=== PATIENT | female | born 1970 | race Two or more races ===

== ENCOUNTER → 2016-09-05 | Outpatient (CLI) | payer BC, OTHER ==
--- NOTE | ~2016-09-05 | MY11 ---
[facility] A Service of [facility] RADIOLOGY TEXT RESULTS PATIENT: DELISA HOUSTON LOCATION: [facility] : 74 UNIT #: [id number] AGE: [address]: SYEDA DOYLE APRN SEX: F ORDER DR: [id number] [facility]. [place], [place] [address] [id number] O MR#: [id number] Acc #: [id number] NAME: DELISA HOUSTON : 1970 SEX: F STUDY DATE/TIME: 09/05/2016 16:16 UNIT: [facility] ROOM: STUDY DESCRIPTION: MY Mammogram Screening Dig Duran Attending Physician: Diaz Doyle Aprn Ordering Physician: Diaz Doyle Aprn Primary Care Physician: Skyler Gaytan M.D. MEDICAL IMAGING REPORT This report is preliminary unless electronic signature is present EXAM Bilateral digital screening mammogram with CAD 09/05/2016. INDICATIONS 46-year-old female for routine screening. No reported problems and no personal or family history of breast cancer. No surgeries. TECHNIQUE CC and MLO views of the breast were obtained and reviewed with an FDA-approved CAD device. The patient reports a prior mammogram in 2013 but she does not remember where it was performed. This will serve as her new baseline. FINDINGS Breast parenchyma is composed of scattered fibroglandular densities. The pattern is symmetric. There is no dominant nodule or mass in either breast. No suspicious cluster of microcalcifications. Faint benign calcifications are present. IMPRESSION Negative baseline screening mammogram. 1-year followup recommended. Patients over the age of 40 are entered into a reminder system with target due date for the next mammogram. A result letter will also be sent to the patient. BIRADS: 1 Negative Dictated by... Ishan Coronel M.D. THIS IS AN ELECTRONICALLY VERIFIED REPORT [facility] A Service of [facility] RADIOLOGY TEXT RESULTS PATIENT: DELISA HOUSTON LOCATION: [facility] : 74 UNIT #: [id number] AGE: [address]: SYEDA DOYLE APRN SEX: F ORDER DR: Ishan Coronel M.D. at 09/06/2016 8:06 AM KIYA/jai TD: 09/05/2016 19:55 JOB #: [id number] MEDICAL IMAGING REPORT Page 1 of 1 COPY
== END | disposition home or self-care (01) ==
LOC: CWCC 16:04
DX: Z12.31 Encounter for screening mammogram for malignant neoplasm of breast (principal)
CPT/HCPCS: G0202